=== PATIENT | male | born 1960 | race Caucasian/White ===

== ENCOUNTER 2019-01-15 05:28 | Inpatient (IN) | payer BC ==
[2019-01-15] VITALS (8 sets, daily range): BP systolic 125–157; BP diastolic 69–86
[~2019-01-15] VITALS: Ht 193 cm; Wt 127.0 kg
--- NOTE | 2019-01-15 06:00 | NUR ---
Blood drawn from [facility] and sent to lab.
[2019-01-15] MEDS ORDERED: CARV6.256 PO (06:07)
[2019-01-15] MEDS ORDERED: RIVA15TA PO (06:07)
[2019-01-15 06:37] LABS: CLARITY,URINE SLIGHTLY CLOUDY (Clear); COLOR,URINE YELLOW (Yellow); GLUCOSE, URINE NEGATIVE (Neg); KETONES,URINE TRACE mg/dl (Neg); LEUKOCYTE ESTERASE ,URINE TRACE (Neg); NITRITES, URINE NEGATIVE (Neg); OCCULT BLOOD,URINE MODERATE (Neg); PROTEIN,URINE NEGATIVE (Neg); UROBILINOGEN,URINE >=8.0 E.U/dL (0.2-1.0)
[2019-01-15 06:38] LABS: UA COLLECTION TYPE CLN CATCH MIDSTREAM
[2019-01-15 06:46] LABS: BASOPHILS % (AUTO) 1.7 % (0-1); EOSINOPHILS # (AUTO) 0.1 X10'3 (0-0.9); EOSINOPHILS % (AUTO) 4.8 % (0-6); HEMATOCRIT 35.2 % (42.0-52.0); HEMOGLOBIN 12.2 g/dl (14.0-17.9); LYMPHOCYTES # (AUTO) 0.7 X10'3 (1.1-4.8); LYMPHOCYTES % (AUTO) 31.8 % (21-51); MEAN CORPUSCULAR HEMOGLOBIN 34.5 PG (27.0-31.0); MEAN CORPUSCULAR HGB CONC 34.7 g/dL (33.0-36.5); MEAN CORPUSCULAR VOLUME 99.6 FL (78-98); MEAN PLATELET VOLUME 8.7 FL (7.4-10.4); MONOCYTES # (AUTO) 0.2 X10'3 (0-0.9); NEUTROPHILS # (AUTO) 1.1 X10'3 (1.8-7.7); NEUTROPHILS % (AUTO) 52.7 % (42-75); RED BLOOD COUNT 3.53 X10'6 (4.70-6.10); WHITE BLOOD COUNT 2.1 X10'3 (4.5-11.0)
[2019-01-15 06:52] LABS: PARTIAL THROMBOPLASTIN TIME 46 SECONDS (22-32)
[2019-01-15 06:55] LABS: ALANINE AMINOTRANSFERASE 46 U/L (12-78); ALBUMIN 2.5 G/DL (3.4-5.0); ALKALINE PHOSPHATASE 104 IU/L (46-116); ANION GAP 12 (8-16); ASPARTATE AMINO TRANSFERASE 94 U/L (10-37); BLOOD UREA NITROGEN 4 MG/DL (7-18); BUN/CREATININE RATIO 5.7 (5.4-32.0); CALCIUM 8.2 MG/DL (8.5-10.1); CHLORIDE 103 MMOL/L (99-107); GLUCOSE 181 MG/DL (70-104); LIPASE 376 U/L (73-393); SODIUM 136 MMOL/L (135-145); TOTAL CARBON DIOXIDE 21.3 MMOL/L (24-32); eGFR > 90 ML/MIN
[2019-01-15 06:57] LABS: CAL OXALATE CRYSTALS 1+ /HPF (NEGATIVE); COARSE GRANULAR CAST 0-3 /LPF (NEGATIVE); HYALINE CASTS 0-3 /LPF (NEGATIVE)
[2019-01-15 06:58] LABS: BACTERIA,URINE 1+ /HPF (Neg); RBC,URINE 0-2 /HPF (0-2); SQUAMOUS EPITHELIAL CELL,UR FEW /LPF (FEW); WBC,URINE 0-4 /HPF (0-4)
[2019-01-15 07:08] LABS: ALBUMIN/GLOBULIN RATIO 0.5 (1.1-1.5); TOTAL PROTEIN 7.1 G/DL (6.4-8.2)
[2019-01-15 07:19] LABS: PLATELET COUNT 22 X10'3 (140-440)
[2019-01-15] MEDS ORDERED: potassium CL 10mEq/100ml bag 100 ML IV PRN ×2 (08:35)
[2019-01-15] MEDS ORDERED: acetaminophen 325mg tablet PO PRN ×2 (08:35)
[2019-01-15] MEDS ORDERED: magnesium 4gm in 100ml NS 100 ML IV PRN (08:35)
[2019-01-15] MEDS ORDERED: potassium Cl 20 mEq SR tablet PO PRN ×2 (08:35)
[2019-01-15] MEDS ORDERED: HYDROcodone/acetaminophen 5mg/325mg tablet PO PRN (08:35)
[2019-01-15] MEDS ORDERED: magnesium Cl slow-release 64mg tablet PO PRN (08:35)
[2019-01-15] MEDS ORDERED: morphine 2 MG/ML inj. syringe IV PRN (08:35)
[2019-01-15] MEDS ORDERED: ondansetron/PF 4mg/2ml inj IV PRN (08:35)
[2019-01-15] MEDS ORDERED: magnesium 2GM in 50ml NS 50 ML IV PRN (08:35)
[2019-01-15] MEDS: normal saline 1000ml 1,000 ML IV SCH ×2 (09:06→22:01)
--- NOTE | 2019-01-15 11:00 | NUR ---
Received patient report from EMMA Alanis in the ED. Patient alert, oriented and ambulatory upon coming to the floor. Patient to room 340 A. Call light in reach and BLL.
[2019-01-15] MEDS ORDERED: fentaNYL/PF 50MCG/1 ML 2ML syringe ONE (12:17)
[2019-01-15] MEDS ORDERED: MIDAZolam 5mg/5ml vial ONE ×2 (12:18→12:38)
[2019-01-15] MEDS ORDERED: LIDOcaine Viscous 15ml cup ONE (12:18)
[2019-01-15] MEDS ORDERED: PEG 3350/Na sulf,bicarb,Cl/KCl oral sol 4 liter bottle PO ONE (13:00)
[2019-01-15] MEDS: pantoprazole 40MG/NS 100ML BAG 100 ML IV SCH ×4 (14:27→23:19)
[2019-01-15] MEDS: octreotide 100mcg/1 ml ampule SQ SCH (15:51)
--- NOTE | 2019-01-15 17:00 | NUR ---
Spoke with Dr. Swanson about patient wanting to be a full code instead of a limited code. Dr. Swanson stated that she would change the code status.
[2019-01-15 17:38] LABS: HEMOGLOBIN A1C 6.6 % (4.5-6.2)
--- NOTE | 2019-01-15 18:36 | NUR ---
Problems reprioritized. Patient report given, questions answered & plan of care reviewed with EMMA Conner.
--- NOTE | 2019-01-15 19:00 | NUR ---
Patient in room ISHA 340. I have received report from Mirna CARTER and had the opportunity to ask questions and assume patient care. Pt sitting up in bed watching tv and drinking his go-litely. No signs of distress, will continue to monitor.
[2019-01-15] MEDS: docusate sod 100mg capsule PO SCH (20:00)
[2019-01-15] MEDS: carvedilol 6.25mg tablet PO SCH (21:10)
[2019-01-16] VITALS (8 sets, daily range): BP systolic 104–149; BP diastolic 58–81
[2019-01-16] MEDS: octreotide 100mcg/1 ml ampule SQ SCH ×2 (00:06→09:12)
[2019-01-16] MEDS: pantoprazole 40MG/NS 100ML BAG 100 ML IV SCH ×2 (04:48→10:47)
[2019-01-16 05:08] LABS: PARTIAL THROMBOPLASTIN TIME 37 SECONDS (22-32)
[2019-01-16 05:20] LABS: ALANINE AMINOTRANSFERASE 29 U/L (12-78); ALBUMIN 2.2 G/DL (3.4-5.0); ALKALINE PHOSPHATASE 91 IU/L (46-116); ANION GAP 8 (8-16); ASPARTATE AMINO TRANSFERASE 69 U/L (10-37); BLOOD UREA NITROGEN 7 MG/DL (7-18); BUN/CREATININE RATIO 9.6 (5.4-32.0); CALCIUM 7.6 MG/DL (8.5-10.1); CHLORIDE 106 MMOL/L (99-107); CREATININE 0.73 MG/DL (0.60-1.10); GLUCOSE 159 MG/DL (70-104); MAGNESIUM 1.5 MG/DL (1.5-2.4); SODIUM 138 MMOL/L (135-145); TOTAL CARBON DIOXIDE 24.1 MMOL/L (24-32); eGFR > 90 ML/MIN
[2019-01-16 05:42] LABS: ALBUMIN/GLOBULIN RATIO 0.6 (1.1-1.5); TOTAL PROTEIN 6.2 G/DL (6.4-8.2)
--- NOTE | 2019-01-16 06:06 | NUR ---
Patient in room ISHA 340. I have received report from EMMA Conner and had the opportunity to ask questions and assume patient care.
--- NOTE | 2019-01-16 06:06 | NUR ---
Problems reprioritized. Patient report given, questions answered & plan of care reviewed with Mirna CARTER.
[2019-01-16 06:12] LABS: BASOPHILS % (AUTO) 1.5 % (0-1); EOSINOPHILS # (AUTO) 0.1 X10'3 (0-0.9); EOSINOPHILS % (AUTO) 5.2 % (0-6); HEMATOCRIT 32.2 % (42.0-52.0); HEMOGLOBIN 11.2 g/dl (14.0-17.9); LYMPHOCYTES # (AUTO) 0.6 X10'3 (1.1-4.8); LYMPHOCYTES % (AUTO) 35.7 % (21-51); MEAN CORPUSCULAR HEMOGLOBIN 34.8 PG (27.0-31.0); MEAN CORPUSCULAR HGB CONC 34.9 g/dL (33.0-36.5); MEAN CORPUSCULAR VOLUME 99.7 FL (78-98); MEAN PLATELET VOLUME 7.8 FL (7.4-10.4); MONOCYTES # (AUTO) 0.2 X10'3 (0-0.9); MONOCYTES % (AUTO) 9.6 % (2-12); NEUTROPHILS # (AUTO) 0.8 X10'3 (1.8-7.7); RED BLOOD COUNT 3.23 X10'6 (4.70-6.10); RED CELL DISTRIBUTION WIDTH 15.1 % (11.5-14.5); WHITE BLOOD COUNT 1.8 X10'3 (4.5-11.0)
[2019-01-16 06:37] LABS: PLATELET COUNT 23 X10'3 (140-440)
[2019-01-16 06:39] LABS: TOTAL CELLS COUNTED 100
[2019-01-16 06:40] LABS: ANISOCYTOSIS 1+; PLATELET ESTIMATE DECREASED
--- NOTE | 2019-01-16 06:46 | NUR ---
Patient in room ISHA 340. I have received report from Mirna and had the opportunity to ask questions and assume patient care. Addendum: 01/16/19 at 0647 by Hebert FARFAN Amended: Links added.
[2019-01-16] MEDS: docusate sod 100mg capsule PO SCH (07:06)
[2019-01-16] MEDS ORDERED: K and/or MAG REPLACEMENT MC SCH (08:00)
[2019-01-16] MEDS: carvedilol 6.25mg tablet PO SCH (08:02)
--- NOTE | 2019-01-16 10:11 | NUR ---
Student documentation: I have reviewed and agree with all interventions, assessments performed and documented by Hebert, nursing instructor.
--- NOTE | 2019-01-16 10:12 | NUR ---
Student Medication Administration: For this medication-pass time frame, all medication were reviewed, dispensed, administered and documented per hospital policy by Hebert, nursing care attendant.
[2019-01-16] MEDS: normal saline 1000ml 1,000 ML IV SCH (10:54)
--- NOTE | 2019-01-16 11:08 | NUR ---
Paged Dr. Hdz of patient's desire to be a full code instead of a limited code and asked her to please change it in the computer. Patient will be going to the GI lab around 1230. They are informed of the patient's wishes. Will attempt to contact Dr. Hdz again.
--- NOTE | 2019-01-16 12:07 | NUR ---
Problems reprioritized. Patient report given, questions answered & plan of care reviewed with Mirna . Addendum: 01/16/19 at 1208 by Hebert FARFAN Amended: Links added.
--- NOTE | 2019-01-16 12:38 | NUR ---
Spoke with Dr. Hdz over the phone and communicated that pt wants to be a full code, not a limited code. stated she would address.
[2019-01-16] MEDS ORDERED: fentaNYL/PF 50MCG/1 ML 2ML syringe ONE (12:54)
[2019-01-16] MEDS ORDERED: MIDAZolam 5mg/5ml vial ONE (12:54)
[2019-01-16 13:27] LABS: H PYLORI ANTIBODY NEGATIVE (Neg)
--- NOTE | 2019-01-16 15:38 | NUR ---
Wound care POC. Reviewed patient's chart and no pictures present. Received wound care consult for concern over coccygeal skin breakdown. Spoke with primary nurse who stated wound appeared to be resolving at this time. Advised that if WOC is consulted to see a wound, policy states it must be pictured and gave primary RN WOC extension number in hopes to revisit at later time today after photo is taken. Addendum: 01/16/19 at 1542 by Noemi Riggs RN Erroneous charting, wrong patient, please disregard
--- NOTE | 2019-01-16 16:30 | NUR ---
Patient discharged home via spouse and taken from unit via wheelchair with x1 staff. PIV removed with cannula intact, tele monitor removed and tele chambers notified. Patient alert, oriented and in no apparent distress at time of discharge. Patient took all belongings with him including discharge instructions. Patient stated an understanding of discharge instructions and was given time for questions and answers. Patient was encouraged to stop taking his blood thinner until he can follow up with PCP. Patient stated he has an appointment tomorrow with a liver specialist. Patient also encouraged to follow up with GI so that he can have his Polyps removed. Patient stated the GI lab said they wanted to see him at the beginning of February.
== END 2019-01-16 16:30 | disposition home or self-care (01) | DRG 813 ==
LOC: ER 05:29 → ED HOLD 08:42 → SUR 3N 11:04
PROVIDERS: ADMIT Internal Medicine; ATTEND Internal Medicine
PROC: 0DJ08ZZ Inspection of Upper Intestinal Tract, Via Natural or Artificial Opening Endoscopic (ICD-10-PCS; principal; 2019-01-15)
PROC: 0DJD8ZZ Inspection of Lower Intestinal Tract, Via Natural or Artificial Opening Endoscopic (ICD-10-PCS; 2019-01-16)
DX: D68.32 Hemorrhagic disorder due to extrinsic circulating anticoagulants (principal); K29.81 Duodenitis with bleeding; K57.31 Diverticulosis of large intestine without perforation or abscess with bleeding; K76.6 Portal hypertension; K74.60 Unspecified cirrhosis of liver; D68.9 Coagulation defect, unspecified; K31.89 Other diseases of stomach and duodenum; D64.9 Anemia, unspecified; K76.0 Fatty (change of) liver, not elsewhere classified; D69.59 Other secondary thrombocytopenia; K63.5 Polyp of colon; F10.21 Alcohol dependence, in remission; T45.515A Adverse effect of anticoagulants, initial encounter; I25.10 Atherosclerotic heart disease of native coronary artery without angina pectoris; E11.9 Type 2 diabetes mellitus without complications; I25.2 Old myocardial infarction; Z86.711 Personal history of pulmonary embolism; Z79.01 Long term (current) use of anticoagulants; Z87.891 Personal history of nicotine dependence; Z95.1 Presence of aortocoronary bypass graft; Y92.89 Other specified places as the place of occurrence of the external cause
CPT/HCPCS: 36415; 43235; 45378; 76700; 80053; 81001; 83036; 83690; 83735; 85025; 85610; 85730; 86677; 87081; 87088; 99152; 99153; A4620; C9113; G0378; J2250; J2354; J3010; J7030; J7040

== ENCOUNTER 2019-07-28 20:56 | Inpatient (IN) | payer BC ==
[~2019-07-28] VITALS: Ht 193 cm; Wt 125.0 kg
[~2019-07-28 20:56] MED LIST: CARV6.256 PO
[2019-07-28 21:28] LABS: BASOPHILS % (AUTO) 0.8 % (0-1); EOSINOPHILS # (AUTO) 0.2 X10'3 (0-0.9); EOSINOPHILS % (AUTO) 5.9 % (0-6); HEMATOCRIT 33.8 % (42.0-52.0); HEMOGLOBIN 11.7 g/dl (14.0-17.9); LYMPHOCYTES % (AUTO) 35.2 % (21-51); MEAN CORPUSCULAR HEMOGLOBIN 35.5 PG (27.0-31.0); MEAN CORPUSCULAR HGB CONC 34.6 g/dL (33.0-36.5); MEAN CORPUSCULAR VOLUME 102.4 FL (78-98); MEAN PLATELET VOLUME 8.6 FL (7.4-10.4); MONOCYTES # (AUTO) 0.2 X10'3 (0-0.9); MONOCYTES % (AUTO) 6.5 % (2-12); NEUTROPHILS # (AUTO) 1.5 X10'3 (1.8-7.7); NEUTROPHILS % (AUTO) 51.6 % (42-75); RED CELL DISTRIBUTION WIDTH 14.9 % (11.5-14.5)
[2019-07-28 21:41] LABS: PLATELET COUNT 26 X10'3 (140-440)
[2019-07-28 21:44] LABS: ALANINE AMINOTRANSFERASE 42 U/L (12-78); ALBUMIN 2.4 G/DL (3.4-5.0); ALKALINE PHOSPHATASE 113 IU/L (46-116); ANION GAP 11 (8-16); ASPARTATE AMINO TRANSFERASE 93 U/L (10-37); BILIRUBIN,TOTAL 6.4 MG/DL (0.1-1.0); BLOOD UREA NITROGEN 7 MG/DL (7-18); BUN/CREATININE RATIO 9.7 (5.4-32.0); CALCIUM 8.6 MG/DL (8.5-10.1); CHLORIDE 100 MMOL/L (99-107); CREATININE 0.72 MG/DL (0.60-1.10); GLUCOSE 277 MG/DL (70-104); SODIUM 133 MMOL/L (135-145); eGFR > 90 ML/MIN
[2019-07-28 21:46] LABS: ALBUMIN/GLOBULIN RATIO 0.5 (1.1-1.5); POTASSIUM 3.8 MMOL/L (3.5-5.1); TOTAL PROTEIN 6.8 G/DL (6.4-8.2)
[2019-07-28 22:04] LABS: ETHANOL 0.034 GM/DL (0.0-0.010)
[2019-07-28 22:05] LABS: TOTAL CELLS COUNTED 100
[2019-07-28 22:06] LABS: PLATELET ESTIMATE DECREASED
[2019-07-28] MEDS ORDERED: aspirin 81mg tab.chew PO ONE (22:35)
[2019-07-28] MEDS ORDERED: nitroGLYCERIN 0.4mg/hour patch TD ONE (22:35)
[2019-07-28] MEDS ORDERED: diltiazem 5mg/ml 5ml inj. IV ONE (22:35)
[2019-07-28] MEDS ORDERED: MULT-1172 PO (22:57)
[2019-07-29] VITALS (7 sets, daily range): BP systolic 120–147; BP diastolic 48–72
[2019-07-29] MEDS ORDERED: mag hydrox/Alum hydrox/simeth 30ml oral suspension PO PRN
[2019-07-29] MEDS ORDERED: ondansetron/PF 4mg/2ml inj IV PRN
[2019-07-29] MEDS ORDERED: acetaminophen 325mg tablet PO PRN
[2019-07-29] MEDS ORDERED: magnesium hydroxide 30ml (MOM) UD suspension PO PRN
[2019-07-29] MEDS ORDERED: regadenoson 0.4mg/5ml syringe IV ONE (00:05)
[2019-07-29] MEDS ORDERED: aminophylline 250mg/10ml inj. IV PRN (00:05)
[2019-07-29] MEDS ORDERED: nitroGLYCERIN 0.4mg SUBLingual tab SL PRN (00:05)
[2019-07-29] MEDS ORDERED: metoprolol tartrate 1mg/ml inj IV PRN (00:05)
--- NOTE | 2019-07-29 00:17 | NUR ---
Pt in NSR now
--- NOTE | 2019-07-29 00:20 | NUR ---
Patient in room PCU 3018. I have received report from Cap RN and had the opportunity to ask questions and assume patient care.
[2019-07-29 03:49] LABS: ALANINE AMINOTRANSFERASE 40 U/L (12-78); ALBUMIN 1.5 G/DL (3.4-5.0); ALBUMIN/GLOBULIN RATIO 0.3 (1.1-1.5); ALKALINE PHOSPHATASE 91 IU/L (46-116); ANION GAP 7 (8-16); ASPARTATE AMINO TRANSFERASE 65 U/L (10-37); BILIRUBIN,TOTAL 6.9 MG/DL (0.1-1.0); BLOOD UREA NITROGEN 7 MG/DL (7-18); BUN/CREATININE RATIO 9.2 (5.4-32.0); CALCIUM 8.2 MG/DL (8.5-10.1); CHLORIDE 104 MMOL/L (99-107); CREATININE 0.76 MG/DL (0.60-1.10); GLUCOSE 260 MG/DL (70-104); POTASSIUM 3.9 MMOL/L (3.5-5.1); SODIUM 134 MMOL/L (135-145); TOTAL CARBON DIOXIDE 23.4 MMOL/L (24-32); TOTAL PROTEIN 6.1 G/DL (6.4-8.2); eGFR > 90 ML/MIN
[2019-07-29 04:02] LABS: BASOPHILS % (AUTO) 0.9 % (0-1); EOSINOPHILS # (AUTO) 0.1 X10'3 (0-0.9); EOSINOPHILS % (AUTO) 5.9 % (0-6); HEMATOCRIT 31.5 % (42.0-52.0); LYMPHOCYTES # (AUTO) 0.9 X10'3 (1.1-4.8); LYMPHOCYTES % (AUTO) 35.2 % (21-51); MEAN CORPUSCULAR HGB CONC 34.8 g/dL (33.0-36.5); MEAN CORPUSCULAR VOLUME 103.5 FL (78-98); MEAN PLATELET VOLUME 8.4 FL (7.4-10.4); MONOCYTES # (AUTO) 0.2 X10'3 (0-0.9); MONOCYTES % (AUTO) 6.7 % (2-12); NEUTROPHILS # (AUTO) 1.3 X10'3 (1.8-7.7); NEUTROPHILS % (AUTO) 51.3 % (42-75); RED BLOOD COUNT 3.05 X10'6 (4.70-6.10); RED CELL DISTRIBUTION WIDTH 14.6 % (11.5-14.5); WHITE BLOOD COUNT 2.5 X10'3 (4.5-11.0)
[2019-07-29 04:24] LABS: HEMOGLOBIN A1C 7.9 % (4.5-6.2)
[2019-07-29 04:29] LABS: PLATELET COUNT 16 X10'3 (140-440)
--- NOTE | 2019-07-29 06:00 | NUR ---
Patient in room PCU 3018. I have received report from EMMA Oliva and had the opportunity to ask questions and assume patient care.
--- NOTE | 2019-07-29 06:39 | NUR ---
Problems reprioritized. Patient report given, questions answered & plan of care reviewed with Lis CARTER.
--- NOTE | 2019-07-29 07:30 | NUR ---
called [facility], won't have enough medications for pt today, CIARAN is postponed till tomorrow. This screen writer will put in a diet order for today
[2019-07-29] MEDS: beta-carotene(A) w/C & E + minerals tab PO SCH (08:52)
[2019-07-29] MEDS: carvedilol 6.25mg tablet PO SCH ×2 (08:53→20:33)
--- NOTE | 2019-07-29 14:18 | NUR ---
DM Consult: A1C 7.9 up from 6.6 in January 2019. Pt seen by RYAN for written/verbal DM ed w/ RD contact information provided. Pt states increased stress and has lots of cookies at home bought by that he has eaten regularly. Pt recalls typical morning food routine, chooses low sugar-added food options, higher fiber foods, and leaner high protein sources. Etoh 0.034 and MCV 103.5 on admit w/ hx cirrhosis receiving MVI/mineral. Pt declines additional questions/concerns at this time. RYAN d/w RN regarding carb controlled diet additional if MD agreeable given DM hx; currently only on heart healthy diet. Will continue to monitor. Addendum: 07/29/19 at [address] Amended: Links added.
[2019-07-29] MEDS ORDERED: ipratropium/albuterol 3ml nebule NEB SCH (15:00)
--- NOTE | 2019-07-29 15:23 | NUR ---
PAGER ID: [phone] MESSAGE: Alexandrea Hdz, Can you put in diabetic protocol for 3018A? His A1C is 7.9, blood sugar in the morning was 260. Thank you! Lis [id number]
[2019-07-29] MEDS ORDERED: dextrose 50%-water 50ml dispensing syringe IV PRN ×2 (15:35)
[2019-07-29] MEDS ORDERED: glucagon, human recombinant 1mg kit SUBCUT PRN (15:35)
[2019-07-29] MEDS ORDERED: MESSAGE TO PHARMACY PO ONE (15:35)
[2019-07-29] MEDS ORDERED: dextrose ORAL solution 15 GM/59 ML bottle PO PRN ×2 (15:35)
--- NOTE | 2019-07-29 18:00 | NUR ---
Problems reprioritized. Patient report given, questions answered & plan of care reviewed with EMMA Oliva.
--- NOTE | 2019-07-29 18:29 | NUR ---
Patient in room PCU 3018. I have received report from Lis CARTER and had the opportunity to ask questions and assume patient care.
[2019-07-29] MEDS: insulin Lispro (HumaLOG) vial - multi-dose SQ SCH ×2 (18:54→20:39)
[2019-07-29] MEDS ORDERED: insulin glargine (Lantus) pen - multi-dose SQ SCH (21:00)
[2019-07-30] VITALS (9 sets, daily range): BP systolic 115–144; BP diastolic 54–73
--- NOTE | 2019-07-30 06:15 | NUR ---
Patient in room PCU 3018. I have received report from EMMA Oliva and had the opportunity to ask questions and assume patient care.
[2019-07-30 06:27] LABS: HEMATOCRIT 32.6 % (42.0-52.0); HEMOGLOBIN 11.3 g/dl (14.0-17.9); MEAN CORPUSCULAR HEMOGLOBIN 36.2 PG (27.0-31.0); MEAN CORPUSCULAR HGB CONC 34.7 g/dL (33.0-36.5); MEAN CORPUSCULAR VOLUME 104.1 FL (78-98); MEAN PLATELET VOLUME 8.2 FL (7.4-10.4); RED BLOOD COUNT 3.13 X10'6 (4.70-6.10); WHITE BLOOD COUNT 2.1 X10'3 (4.5-11.0)
--- NOTE | 2019-07-30 06:29 | NUR ---
Problems reprioritized. Patient report given, questions answered & plan of care reviewed with Lauren CARTER.
[2019-07-30 06:37] LABS: ALANINE AMINOTRANSFERASE 36 U/L (12-78); ALBUMIN 2.1 G/DL (3.4-5.0); ALBUMIN/GLOBULIN RATIO 0.5 (1.1-1.5); ALKALINE PHOSPHATASE 84 IU/L (46-116); ANION GAP 7 (8-16); ASPARTATE AMINO TRANSFERASE 57 U/L (10-37); BILIRUBIN,TOTAL 8.5 MG/DL (0.1-1.0); BLOOD UREA NITROGEN 7 MG/DL (7-18); BUN/CREATININE RATIO 9.2 (5.4-32.0); CALCIUM 7.8 MG/DL (8.5-10.1); CHLORIDE 107 MMOL/L (99-107); CREATININE 0.76 MG/DL (0.60-1.10); GLUCOSE 191 MG/DL (70-104); POTASSIUM 3.4 MMOL/L (3.5-5.1); SODIUM 140 MMOL/L (135-145); TOTAL CARBON DIOXIDE 26.4 MMOL/L (24-32); TOTAL PROTEIN 6.1 G/DL (6.4-8.2); eGFR > 90 ML/MIN
[2019-07-30 06:41] LABS: PLATELET COUNT 19 X10'3 (140-440)
--- NOTE | 2019-07-30 07:06 | NUR ---
PAGER ID: [phone] MESSAGE: Dr. Chanel- pt Oriana Shipman on PCU rm 18A critical platelet count of 19. improved from 07/29/19 of 16. thank you, Gena Maldonado RN 0100 U
[2019-07-30] MEDS: beta-carotene(A) w/C & E + minerals tab PO SCH (07:54)
[2019-07-30] MEDS: insulin Lispro (HumaLOG) vial - multi-dose SQ SCH ×2 (07:56→13:34)
[2019-07-30] MEDS: carvedilol 6.25mg tablet PO SCH (08:00)
--- NOTE | 2019-07-30 09:30 | NUR ---
Patient left floor to go have Lexiscan. Patient alert and oriented and in a stable condition.
[2019-07-30 09:55] LABS: TOTAL CELLS COUNTED 100
[2019-07-30 09:56] LABS: ANISOCYTOSIS 1+; PLATELET ESTIMATE DECREASED; SMUDGE CELLS 2+
[2019-07-30 09:57] LABS: POLYCHROMASIA 1+
[2019-07-30 09:58] LABS: ELLIPTOCYTES 1+
[2019-07-30] MEDS ORDERED: regadenoson 0.4mg/5ml syringe IV PRN (10:05)
--- NOTE | 2019-07-30 10:40 | NUR ---
patient back from [facility], will notify Dr. Chanel when resulted. Patient is stable and vitals are WNL. Will continue to monitor patient for duration of shift.
--- NOTE | 2019-07-30 11:49 | NUR ---
PAGER ID: [phone] MESSAGE: Dr. Chanel, pt Oriana Shipman on U rm 18A, per Dr. Smith from radiology: Moderate to Large fixed perfusion defect to Left Ventricular [place]. Thank you, Alex Maldonado RN [id number] call U
--- NOTE | 2019-07-30 14:48 | NUR ---
Patient will schedule his next appointment with PCP, Ashley Anthony at [facility]. He reports that he is constant contact with her. She manages his diabetes.
--- NOTE | 2019-07-30 15:45 | NUR ---
Patient has been discharge All discharge instructions given to patient verbally and written. Patient is alert and oriented and reports that he understands these instructions and agrees to follow up with PCP. PIV removed by EMMA Landry and patient left with personal items. He was in a stable condition.
== END 2019-07-30 15:43 | disposition home or self-care (01) | DRG 303 ==
LOC: ER 20:57 → ED HOLD 23:58 → PCU 3S 07-29 00:48
PROVIDERS: ADMIT Internal Medicine; ATTEND Internal Medicine
PROC: 4A02XM4 Measurement of Cardiac Total Activity, External Approach (ICD-10-PCS; principal; 2019-07-30)
PROC: 3E033HZ Introduction of Radioactive Substance into Peripheral Vein, Percutaneous Approach (ICD-10-PCS; 2019-07-30)
DX: I25.119 Atherosclerotic heart disease of native coronary artery with unspecified angina pectoris (principal); I48.91 Unspecified atrial fibrillation; K74.60 Unspecified cirrhosis of liver; D69.6 Thrombocytopenia, unspecified; E11.9 Type 2 diabetes mellitus without complications; I10 Essential (primary) hypertension; I25.2 Old myocardial infarction; Z86.711 Personal history of pulmonary embolism; Z87.891 Personal history of nicotine dependence; Z79.51 Long term (current) use of inhaled steroids; K76.89 Other specified diseases of liver; R07.9 Chest pain, unspecified; Z95.1 Presence of aortocoronary bypass graft; R06.02 Shortness of breath
CPT/HCPCS: 36415; 71045; 76700; 78452; 80053; 80320; 82103; 82948; 83036; 83880; 84484; 85025; 87081; 93005; 93017; 93306; 96374; 99285; A9500; G0378; J1815; J3490

== ENCOUNTER 2019-08-28 17:48 | Inpatient (IN) | payer BC ==
[~2019-08-28] VITALS: Ht 193 cm; Wt 127.0 kg
[~2019-08-28 17:48] MED LIST changes: +MULT-1172 PO
[2019-08-28 18:31] LABS: BASOPHILS % (AUTO) 1.2 % (0-1); EOSINOPHILS # (AUTO) 0.1 X10'3 (0-0.9); EOSINOPHILS % (AUTO) 3.3 % (0-6); HEMATOCRIT 32.2 % (42.0-52.0); HEMOGLOBIN 11.1 g/dl (14.0-17.9); MEAN CORPUSCULAR HGB CONC 34.6 g/dL (33.0-36.5); MEAN PLATELET VOLUME 8.1 FL (7.4-10.4); MONOCYTES # (AUTO) 0.2 X10'3 (0-0.9); MONOCYTES % (AUTO) 9.7 % (2-12); NEUTROPHILS # (AUTO) 1.1 X10'3 (1.8-7.7); NEUTROPHILS % (AUTO) 44.8 % (42-75); RED BLOOD COUNT 3.09 X10'6 (4.70-6.10); RED CELL DISTRIBUTION WIDTH 15.1 % (11.5-14.5); WHITE BLOOD COUNT 2.5 X10'3 (4.5-11.0)
[2019-08-28 18:40] LABS: ALANINE AMINOTRANSFERASE 44 U/L (12-78); ALBUMIN 2.3 G/DL (3.4-5.0); ALKALINE PHOSPHATASE 100 IU/L (46-116); ANION GAP 9 (8-16); ASPARTATE AMINO TRANSFERASE 79 U/L (10-37); BILIRUBIN,TOTAL 8.5 MG/DL (0.1-1.0); BLOOD UREA NITROGEN 5 MG/DL (7-18); BUN/CREATININE RATIO 6.8 (5.4-32.0); CHLORIDE 106 MMOL/L (99-107); CREATININE 0.73 MG/DL (0.60-1.10); GLUCOSE 170 MG/DL (70-104); POTASSIUM 3.9 MMOL/L (3.5-5.1); SODIUM 139 MMOL/L (135-145); eGFR > 90 ML/MIN
[2019-08-28 18:52] LABS: PLATELET COUNT 17 X10'3 (140-440)
[2019-08-28 19:07] LABS: ALBUMIN/GLOBULIN RATIO 0.5 (1.1-1.5); TOTAL PROTEIN 6.6 G/DL (6.4-8.2)
--- NOTE | 2019-08-28 19:13 | NUR ---
SUPPLIED PATIENT WITH 480mL OF ICE WATER NUVIA ROSAS VERBALIZED THIS IS OK
[2019-08-28] MEDS ORDERED: INSU100I29 SUBCUT (19:42)
[2019-08-28] MEDS ORDERED: acetaminophen 325mg tablet PO PRN (20:00)
[2019-08-28] MEDS ORDERED: ondansetron/PF 4mg/2ml inj IV PRN (20:00)
[2019-08-28] MEDS ORDERED: mag hydrox/Alum hydrox/simeth 30ml oral suspension PO PRN (20:00)
[2019-08-28] MEDS ORDERED: magnesium hydroxide 30ml (MOM) UD suspension PO PRN (20:00)
--- NOTE | 2019-08-28 20:35 | NUR ---
Patient in room ED 15. I have received report from Annabelle CARTER and awaiting arrival of patient to the PCU unit.
[2019-08-28 20:40] VITALS: BP 141/63
--- NOTE | 2019-08-28 20:40 | NUR ---
Patient arrived from the ED to the PCU unit at this time. He is alert and oriented and able to make his needs known. He was able to ambulate from the gurney to the bed independently without issues. He is on room air. He denies any pain. Vitals are stable. All safety precaution are in place and call light in reach. Will continue to monitor for changes.
[2019-08-28 22:00] VITALS: BP 139/72
[2019-08-29 01:05] LABS: BASOPHILS % (AUTO) 0.7 % (0-1); EOSINOPHILS # (AUTO) 0.1 X10'3 (0-0.9); EOSINOPHILS % (AUTO) 4.4 % (0-6); HEMATOCRIT 30.3 % (42.0-52.0); HEMOGLOBIN 10.5 g/dl (14.0-17.9); LYMPHOCYTES # (AUTO) 0.9 X10'3 (1.1-4.8); LYMPHOCYTES % (AUTO) 43.7 % (21-51); MEAN CORPUSCULAR HEMOGLOBIN 35.9 PG (27.0-31.0); MEAN CORPUSCULAR HGB CONC 34.7 g/dL (33.0-36.5); MEAN CORPUSCULAR VOLUME 103.5 FL (78-98); MEAN PLATELET VOLUME 7.7 FL (7.4-10.4); MONOCYTES # (AUTO) 0.2 X10'3 (0-0.9); MONOCYTES % (AUTO) 8.8 % (2-12); NEUTROPHILS # (AUTO) 0.9 X10'3 (1.8-7.7); NEUTROPHILS % (AUTO) 42.4 % (42-75); RED BLOOD COUNT 2.93 X10'6 (4.70-6.10); RED CELL DISTRIBUTION WIDTH 15.3 % (11.5-14.5); WHITE BLOOD COUNT 2.1 X10'3 (4.5-11.0)
[2019-08-29 01:09] LABS: PLATELET COUNT 16 X10'3 (140-440)
[2019-08-29 01:19] LABS: ALANINE AMINOTRANSFERASE 44 U/L (12-78); ALBUMIN 2.1 G/DL (3.4-5.0); ALKALINE PHOSPHATASE 91 IU/L (46-116); ANION GAP 8 (8-16); ASPARTATE AMINO TRANSFERASE 69 U/L (10-37); BILIRUBIN,TOTAL 8.6 MG/DL (0.1-1.0); BLOOD UREA NITROGEN 6 MG/DL (7-18); BUN/CREATININE RATIO 7.6 (5.4-32.0); CALCIUM 7.6 MG/DL (8.5-10.1); CHLORIDE 107 MMOL/L (99-107); CREATININE 0.79 MG/DL (0.60-1.10); GLUCOSE 165 MG/DL (70-104); POTASSIUM 3.7 MMOL/L (3.5-5.1); SODIUM 140 MMOL/L (135-145); TOTAL CARBON DIOXIDE 25.4 MMOL/L (24-32); eGFR > 90 ML/MIN
[2019-08-29 01:25] LABS: ALBUMIN/GLOBULIN RATIO 0.6 (1.1-1.5); TOTAL PROTEIN 5.9 G/DL (6.4-8.2)
[2019-08-29 02:00] VITALS: BP 144/52
[2019-08-29 06:00] VITALS: BP 143/68
--- NOTE | 2019-08-29 06:25 | NUR ---
Problems reprioritized. Patient report given, questions answered & plan of care reviewed with Nolan CARTER.
[2019-08-29] MEDS ORDERED: multivitamins, therapeutics tablet PO SCH (08:00)
[2019-08-29] MEDS ORDERED: carvedilol 6.25mg tablet PO SCH (08:00)
[2019-08-29] MEDS ORDERED: Insulin Degludec (Tresiba Flextouch U-100) SQ SCH (08:00)
[2019-08-29] MEDS ORDERED: insulin glargine (Lantus) pen - multi-dose SQ SCH (08:00)
--- NOTE | 2019-08-29 09:05 | NUR ---
DM consult: Pt with A1c 7.9% recently admitted and seen by RYAN 07/28 for written and verbal DM education. RD contact information provided at that time. No further education warranted at this time. Will continue to follow. Addendum: 08/29/19 at [address] Amended: Links added.
[2019-08-29 11:00] VITALS: BP 136/68
--- NOTE | 2019-08-29 12:58 | NUR ---
Pt states he wants to go home and get some rest. Pt does not feel like he neds to be in hospiatl since he was just here and won't be getting any more testing. Dr. Hdz called and informed. Dr. Hdz would like pt to stay another night. Pt will speak with and let RN know what he decides to do.
--- NOTE | 2019-08-29 14:18 | NUR ---
Pt signed AMA form, got dressed, called for ride, and was wheel chaired out in stable condition with belongings.
== END 2019-08-29 13:35 | disposition left against medical advice (07) | DRG 313 ==
LOC: ER 17:48 → ED HOLD 20:00 → PCU 3S 20:39
PROVIDERS: ADMIT Internal Medicine; ATTEND Internal Medicine
DX: R07.9 Chest pain, unspecified (principal); E11.9 Type 2 diabetes mellitus without complications; I11.0 Hypertensive heart disease with heart failure; I25.119 Atherosclerotic heart disease of native coronary artery with unspecified angina pectoris; I48.91 Unspecified atrial fibrillation; I50.9 Heart failure, unspecified; K72.90 Hepatic failure, unspecified without coma; K74.60 Unspecified cirrhosis of liver; Z86.711 Personal history of pulmonary embolism; Z87.891 Personal history of nicotine dependence; I25.2 Old myocardial infarction; Z95.1 Presence of aortocoronary bypass graft
CPT/HCPCS: 36415; 71045; 80053; 82948; 83880; 84484; 85025; 87081; 93005; 99285; G0378; J1815

== ENCOUNTER 2020-01-29 21:50 | Emergency (ER) | payer BC ==
[~2020-01-29] VITALS: Ht 190.5 cm; Wt 125.0 kg
[~2020-01-29 21:50] MED LIST changes: +INSU100I29 SUBCUT
[2020-01-29 22:31] LABS: BASOPHILS % (AUTO) 1.2 % (0-1); EOSINOPHILS # (AUTO) 0.1 X10'3 (0-0.9); EOSINOPHILS % (AUTO) 4.8 % (0-6); HEMATOCRIT 40.7 % (42.0-52.0); HEMOGLOBIN 14.3 g/dl (14.0-17.9); LYMPHOCYTES # (AUTO) 0.9 X10'3 (1.1-4.8); LYMPHOCYTES % (AUTO) 28.3 % (21-51); MEAN CORPUSCULAR HEMOGLOBIN 35.5 PG (27.0-31.0); MEAN CORPUSCULAR HGB CONC 35.1 g/dL (33.0-36.5); MEAN CORPUSCULAR VOLUME 101.2 FL (78-98); MONOCYTES # (AUTO) 0.3 X10'3 (0-0.9); MONOCYTES % (AUTO) 8.7 % (2-12); NEUTROPHILS # (AUTO) 1.7 X10'3 (1.8-7.7); RED BLOOD COUNT 4.02 X10'6 (4.70-6.10); RED CELL DISTRIBUTION WIDTH 14.9 % (11.5-14.5); WHITE BLOOD COUNT 3.1 X10'3 (4.5-11.0)
[2020-01-29 22:36] LABS: PLATELET COUNT 20 X10'3 (140-440)
[2020-01-29 22:37] LABS: ALANINE AMINOTRANSFERASE 44 U/L (12-78); ALBUMIN 2.7 G/DL (3.4-5.0); ALKALINE PHOSPHATASE 124 IU/L (46-116); ANION GAP 13 (8-16); ASPARTATE AMINO TRANSFERASE 78 U/L (10-37); BILIRUBIN,TOTAL 9.4 MG/DL (0.1-1.0); BLOOD UREA NITROGEN 6 MG/DL (7-18); BUN/CREATININE RATIO 7.9 (5.4-32.0); CALCIUM 8.9 MG/DL (8.5-10.1); CHLORIDE 101 MMOL/L (99-107); CREATININE 0.76 MG/DL (0.60-1.10); GLUCOSE 263 MG/DL (70-104); SODIUM 136 MMOL/L (135-145); TOTAL CARBON DIOXIDE 22.4 MMOL/L (24-32); eGFR > 90 ML/MIN
[2020-01-29 22:44] LABS: ALBUMIN/GLOBULIN RATIO 0.6 (1.1-1.5); POTASSIUM 4.1 MMOL/L (3.5-5.1); TOTAL PROTEIN 7.5 G/DL (6.4-8.2)
[2020-01-29] MEDS ORDERED: pantoprazole 40mg Tablet.DR PO ONE (23:15)
[2020-01-29] MEDS ORDERED: mag hydrox/Alum hydrox/simeth 30ml oral suspension PO ONE (23:15)
[2020-01-29 23:40] VITALS: BP 150/83
== END 2020-01-29 23:47 | disposition home or self-care (01) ==
LOC: ER 21:51
DX: R00.2 Palpitations (principal); E86.0 Dehydration; I49.3 Ventricular premature depolarization; D69.6 Thrombocytopenia, unspecified; I48.91 Unspecified atrial fibrillation; I25.10 Atherosclerotic heart disease of native coronary artery without angina pectoris; I10 Essential (primary) hypertension; I25.2 Old myocardial infarction; E11.9 Type 2 diabetes mellitus without complications; Z86.711 Personal history of pulmonary embolism; Z98.890 Other specified postprocedural states; Z72.89 Other problems related to lifestyle; Z88.8 Allergy status to other drugs, medicaments and biological substances; Z79.4 Long term (current) use of insulin; Z79.899 Other long term (current) drug therapy
CPT/HCPCS: 71045; 80053; 83880; 84484; 85025; 93005; 99285